=== PATIENT | female | born 1955 | race Caucasian/White ===

== ENCOUNTER 2025-01-21 12:26 | Outpatient (CLI) | payer MEDICARE, SELFPAY ==
--- OUTSIDE RECORDS SUMMARY | 2025-01-21 12:38 | XMS_ITS ---
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 11/01/2023 Intertrigo 06/16/2022 History of right breast cancer 05/23/2022 Malignant neoplasm of upper- outer quadrant of right breast in female, estrogen receptor positive 11/09/2021 Cancer Staging:Pathologic stage from 01/19/2022:Stage IA(pT2, pN0(sn), cM0, G2, ER+, OK+, HER2-) - Signed by Esteban Olivera MD on 03/30/2022 Current Treatment and Therapy Plans denosumab (PROLIA) Injection* Plan Start Date:11/06/2023 Plan Provider:Cortney Godinez MD Linked Problems middle or intermediate school principal (current) use of a romatase inhibitorsOsteopenia of multiple sitesMalignant neoplasm of upper-outer quadrant of right breast in female, estrogen receptor positive (HCC) Treatment Medications No medications scheduled. Past Treatment and Therapy Plans No past plan information found. Radiation Treatments * Course C1_R [id number]_22 04/28/2022 - 05/19/2022 Treatment Period Energy Fraction Dose Fractions Total Dose Plans Planned R BRST PRONE 04/28/2022 - 05/19/2022 266 16 / 4,256 Reference Points Delivered PRNE R [id number] 04/28/2022 - 05/19/2022 4,256
--- OUTSIDE RECORDS SUMMARY | 2025-01-21 12:38 | XMS_ITS | Encounter Summary ---
Author Organization [facility] Address [address] [place] [address] Phone Care Team Providers Care Mixing Tumbler Operator Name Role Phone Clarence Valles MD Primary Care Provider Alexandre, Shaye Abbott MD PhD Unavailable [phone] Esteban Olivera MD Unavailable Cortney Godinez MD Unavailable [phone] Anita Sawyer PhD Unavailable [phone] Encounter Details Date Type Department Care Team (Latest Contact Info) Description 09/18/2023 Orders Only [facility] Scanning, Provider Social History Tobacco Use Types Packs/Day Years Used Date Smoking Tobacco: Former Cigarettes 0.5 1 1 976 - 1976 Passive Smoke Exposure: Past Smokeless Tobacco: Never AUDIT-C Answer Date Recorded Q1: How often do you have a drink containing alc ohol? Never 03/30/2022 Average Number of Drinks Not on file 022 Frequency of Binge Drinking Not on file 03/17 Comments No Sex and Gender Information Value Date Recorded Sex Assigned at Not on file Legal Sex Female 8:23 PM PALEOLOGY PROFESSOR Gender Identity Female 11/09/2021 6:44 PM PALEOLOGY PROFESSOR Sexual Orientation Choose not to disclose 2021 6:44 PM PALEOLOGY PROFESSOR documented as of this encounter Plan of Treatment Not on file documented as of this encounter Procedures Procedure Name Priority Date/Time Associated Diagnosis Comments SCAN - RADIOLOGY/IMAGING 09/18/2023 documented in this encounter Results * SCAN - RADIOLOGY/IMAGING (09/18/2023) Anatomical Region Laterality Modality Other us Provider Scanning Final Result documented in this encounter Visit Diagnoses Not on filedocumented in this encounter Care Teams Mixing Tumbler Operator Relationship Specialty Start Date End Date Clarence Valles MD PCP - General Internal Medicine 10/12/21 AftShaye MD PhD [address] [place] [address] Surgeon Surgical Oncology 01/19/22 Esteban Olivera MD [address] [facility] [address] [place] [address] Radiation Oncologist Radiation Oncology 03/30/22 Cortney Godinez MD [address] [place] [address] Medical Oncologist/Director Of Student Financial Aid Medical Oncology 03/30/22 Anita Sawyer, PhD [address] [facility] [address] [place] [address] Nurse Practitioner Radiation Oncology 05/23/22 documented as of this encounter
--- OUTSIDE RECORDS SUMMARY | 2025-01-21 12:38 | XMS_ITS | Clinical Summary ---
Author Organization [facility] [employer] Address [address] [place] [address] Care Team Providers Care Manager Parking Name Role Phone Clarence Valles MD Primary Care Provider [phone] Source Comments [facility] [employer],non-owned Affiliates and Associated Physician Practices is amultiple site organization consisting of ambulatory clinics and hospital sitesin [place], [place], [place] and [place]. This disclosure is being madepursuant to the Care Everywhere program and may not contain all information available regarding this patient. Last updated 18.[facility] [employer] Allergies Active Allergy Reactions Criticality Noted Date Comments Mellaril Itching 08/25/2020 Fluoxetine Itching 08/25/2020 Stelazine Itching 08/25/2020 Medications * Be aware that medications may not be up to date on this document. Alwaysverify current medications with the patient. tamsulosin (FLOMAX) 0.4 MG capsule Take 1 (one) capsule by mouth once daily At the same time every day after a meal. Active risperiDONE (RISPERDAL) 1 MG tablet Take 1 (one) tablet by mouth 2 times daily 2 times in day and 3 at bedtime Active LORazepam (ATIVAN) 2 MG tablet Take 1 (one) tablet by mouth every 8 hours as needed for Anxiety 3 to 5 mg per day 3 to 4 per day Active benztropine (COGENTIN) 0.5 MG tablet Take 1 (one) tablet by mouth once daily 1 to 2 pills per day. 1 in morning, 1/2 afternoon then 1/2 as needed Active lamoTRIgine (LAMICTAL) 200 MG tablet Take 1 (one) tablet by mouth once daily Active PARoxetine (PAXIL) 30 MG tablet Take by mouth once daily 2 per day Active traZODone (DESYREL) 100 MG tablet Take 1 (one) tablet by mouth at bedtime 1/2 at bedtime. 1/2 more if needed Active docusate sodium (Colace) 100 MG capsuleIndication s:Drug-induced constipation TAKE 1 CAPSULE BY MOUTH EVERY DAY 90 capsule 3 Active Active Problems Problem Noted Date Diagnosed Date Stage 3a chronic kidney disease 01/30/2024 Drug-induced constipation 01/30/2024 Vitamin D deficiency 11/24/2020 Encounters Date Type Department Care Team Description 01/20/2025 Telephone [facility] [address] [place] [address] [phone] Rafael Fry RN Follow-up 01/15/2025 Orders Only [facility] [address] [place] [phone] John Mcgill MD Stage 3a chronic kidney disease (HCC) 12/10/2024 Refill [facility] - Nephrology [address] [place] [address] [phone] John Mcgill MD Refill Request from Last 3 Months Social History Tobacco Use Types Packs/Day Years Used Date Smoking Tobacco: Never Smokeless Tobacco: Never Alcohol Use Standard Drinks/Week Comments Never 0 (1 standard drink = 0.6 oz pur e alcohol) AUDIT-C Answer Date Recorded Q1: How often do you have a drink containing alc ohol? Never 08/25/2020 Average Number of Drinks Not on file 020 Frequency of Binge Drinking Not on file 05/2020 Comments Unknown Sex and Gender Information Value Date Recorded Sex Assigned at Female 11/22/2021 10:36 PM TARIFF CLERK Legal Sex Female 10:33 AM CDT Gender Identity Choose not to disclose 10:36 PM TARIFF CLERK Sexual Orientation Choose not to disclose 2021 10:36 PM TARIFF CLERK Last Filed Vital Signs Vital Sign Reading Time Taken Comments Blood Pressure 130/65 01/30/2024 1:06 PM CDT Pulse 69 01/30/2024 1:06 PM CDT Temperature 36.7 C (98 F) 01/30/2024 1:06 PM CDT Respiratory Rate 20 01/31/2023 12:44 PM CDT Oxygen Saturation 100% 01/30/2024 1:06 PM CDT Inhaled Oxygen Concentration - - Weight 80.3 kg (177 lb) 01/30/2024 1:06 PM CDT Height 167.6 cm (5' 6 ) 11/24/2020 1:58 PM TARIFF CLERK Body Mass Index 28.57 11/24/2020 1:58 PM TARIFF CLERK Plan of Treatment Upcoming Encounters Date Type Department Care Team (Late st Contact Info) Description 01/28/2025 1:00 PM CDT Office Visit [facility] - Nephrology [address] [place] [address], [place] [phone] John Mcgill MD [address] [place] [address] [address] [place] [address] Health Maintenance Due Date Last Done Comments BONE DENSITY TESTING 1955 COLOGUARD (AGES 45-75) - COLON CA SCREENING 1957 COLON MONITORING 1957 COLONOSCOPY - COLON CA SCREENING 1957 CT COLONOGRAPHY - COLON CA SCREENING 1957 Colorectal Cancer Screening 1957 FIT - COLON CA SCREENING 1957 FLEX SIG - COLON CA SCREENING 1957 LIPID TESTING 1957 HEPATITIS C SCREENING 01/19/1975 DTAP/TDAP/TD VACCINES (1 - Tdap) 01/24/1976 PNEUMOCOCCAL VACCINE 50+ (1 of 1 - PCV) 2007 ZOSTER VACCINE (1 of 2) 2007 COVID-19 VACCINE (5 - season) 2024 10/02/2022, 11/16/2021, 03/14/2021, Additional history exists DEPRESSION SCREENING 09/17/2024 MEDICARE AWV CALENDAR YEAR 2024 MAMMOGRAM 02/05/2025 02/05/2023 INFLUENZA VACCINE (Season Ended) 2025 08/02/2023, 08/02/2022, 08/02/2021, Additional history exists Respiratory Syncytial Virus (RSV) Vaccine Pt: or over 60 yrs (1 - 1-dose 75+ series) 01/24/2032 HEPATITIS B VACCINE Aged Out No longe r eligible based on patient's age to complete this topic HIB VACCINE Aged Out No longer eligi ble based on patient's age to complete this topic HPV VACCINE Aged Out No longer eligi ble based on patient's age to complete this topic MENINGOCOCCAL (Group B) VACCINE SHARED DECISION-MAKING Aged Out No longer eligible based on patient's age to complete this topic MENINGOCOCCAL GROUPS A/C/Y/W VACCINE Aged Out No longer eligible based on patient's age to complete this topic Goals Goal Patient Goal Type Associated Problems Recent Progress Patient-Stated? Author Medication Management General Mildred Cowart RN Note: Expected end date: ongoing Interventions: Take medications as prescribed by physician. GC/patient contact physician/nurse with any changes in medications. GC/patient contact physician/nurse at least one week before taking last dose of medication when requesting refills. 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
--- OUTSIDE RECORDS SUMMARY | 2025-01-21 12:38 | XMS_ITS | Clinical Summary ---
Author Organization [address] Address [facility] [place] [address] Care Team Providers Care Shag Truck Driver Name Role Phone Clarence Valles MD Primary Care Provider Aft, Shaye Abbott MD PhD Unavailable [phone] Esteban Olivera MD Unavailable Cortney Godinez MD Unavailable [phone] Anita Sawyer PhD Unavailable Allergies Active Allergy Reactions Criticality Noted Date Comments Fluoxetine Itching High 09/27/2015 Other Hives Medium 08/03/2022 Skin allergy to metal Thioridazine Itching,Rash Medium 08/25/2020 Trifluoperazine Itching,Rash High 09/27/2015 Medications benztropine (COGENTIN) 0.5 mg tabletIndicatio ns:duskinesia Take 1 tablet (0.5 mg total) by mouth 2 (two) times a day 2 Active lamoTRIgine (LaMICtal) 200 mg tabletIndicatio ns:Bipolar Take 1 tablet (200 mg total) by mouth every morning 1 Active LORazepam (ATIVAN) 2 mg tabletIndicatio ns:anxiety Take 2 mg by mouth 2 (two) times a day as needed for anxiety 0 Active risperiDONE (RisperDAL) 1 mg tabletIndicatio ns:bipolar Take 1 tablet (1 mg total) by mouth 4 (four) times a day 2 tabs in AM 1 tab with lunch 1 with dinner 3 tabs at night Active PARoxetine (PAXIL) 30 mg tabletIndicatio ns:Anxiety with Depression Take 2 tablets by mouth every morning Active tamsulosin (FLOMAX) 0.4 mg extended release capsule 1 capsule (0.4 mg total) every evening Active traZODone (DESYREL) 100 mg tablet Take 1 tablet (100 mg total) by mouth nightly as needed for sleep Active vitamin B complex capsule Take 1 capsule by mouth every morning Active multivitamin capsule Take 1 capsule by mouth every morning Active vitamin E (AQUASOL E) 400 unit capsule Take 4 capsules (1,600 Units total) by mouth every morning Active calcium carbonate (CALCIUM 500 ORAL) Take by mouth every morning Active LORazepam (ATIVAN) 1 mg tablet Take 1 tablet (1 mg total) by mouth 3 (three) times a day 2 Active PARoxetine (PAXIL) 20 mg tablet Take 1 tablet (20 mg total) by mouth 2 (two) times a week 2 Active omega 8-pgp-lqq-fish oil (Fish OiL) 100-160-1,000 mg capsule Active LORazepam (ATIVAN) 0.5 mg tablet PLEASE SEE ATTACHED FOR DETAILED DIRECTIONS 3 Active traZODone (DESYREL) 50 mg tablet TAKE 1 TABLET BY MOUTH EVERY DAY AT BEDTIME NEEDED FOR 30 DAYS 3 Active PARoxetine (PAXIL) 40 mg tablet TAKE 1 TABLET BY MOUTH EVERY DAY IN THE MORNING FOR 90 DAYS 3 Active anastrozole (ARIMIDEX) 1 mg tablet TAKE 1 TABLET BY MOUTH EVERY DAY 90 tablet 3 4 Active Active Problems Problem Noted Date Diagnosed Date Osteopenia of multiple sites 11/01/2023 longterm (current) use of aromatase inhibitors 11/01/2023 Intertrigo 06/16/2022 History of right breast cancer 05/23/2022 Malignant neoplasm of upper- outer quadrant of right breast in female, estrogen receptor positive 11/09/2021 Cancer Staging:Pathologic stage from 01/19/2022:Stage IA(pT2, pN0(sn), cM0, G2, ER+, AK+, HER2-) - Signed by Esteban Olivera MD on 03/30/2022 Encounters Date Type Department Care Team Description 11/11/2024 12:00 PM FINISHING RANGE OPERATOR Office Visit [facility] Oncology [address] [facility] [place] [address] Cortney Godinez MD Malignant neoplasm of upper-outer quadrant of right breast in female, estrogen receptor positive (HCC) (Primary Dx) 11/11/2024 11:15 AM FINISHING RANGE OPERATOR Lab [facility] - Lab Collection [address] [facility] [address] [place] [address] Malignant neoplasm of upper-outer quadrant of right breast in female, estrogen receptor positive (HCC) from Last 3 Months Immunizations Immunization Administration Dates Next Due Influenza, Quadrivalent, Hig h Dose, Preservative Free, Intrr 08/02/2023,08/02/2022 Influenza, Quadrivalent, Spl it, Intramuscular 07/18/2016 Influenza, Quadrivalent, Spl it, Preservative Free, Intramuscular 08/02/2021,07/05/2020,08/06/2019,07/25,07/10/2017 Influenza, Trivalent, IM (MDV) 06/30/2015 Influenza, Trivalent, Preser vative Free, Intramuscular 07/17/2014 Pneumococcal Conjugate Pcv20 01/03/2022 Surgical History Surgery Date Site/Laterality Comments KNEE ARTHROPLASTY Right KNEE ARTHROPLASTY TUBAL LIGATION 1979? BLADDER SUSPENSION 1984? FOOT SURGERY hardware COLONOSCOPY BREAST BIOPSY Right Medical History Medical History Date Comments Breast cancer (HCC) Kidney failure Schizoaffective disorder (HCC) Panic disorder Post traumatic stress disorder Generalized anxiety disorder Family History Medical History Relation Name Comments Breast cancer Mother Breast cancer Other Prostate cancer Paternal Grandfather Anesthesia problems Neg Hx Relation Name Status Comments Mother Other Paternal Grandfather Paternal Great-Grandfather Alive Social History Tobacco Use Types Packs/Day Years Used Date Smoking Tobacco: Former Cigarettes 0.5 1 1 976 - 1976 Passive Smoke Exposure: Past Smokeless Tobacco: Never Tobacco Cessation:Counseling Given: Not Answered AUDIT-C Answer Date Recorded Q1: How often do you have a drink containing alc ohol? Never 03/30/2022 Average Number of Drinks Not on file 022 Frequency of Binge Drinking Not on file 03/17 Comments No Sex and Gender Information Value Date Recorded Sex Assigned at Not on file Legal Sex Female 8:23 PM FINISHING RANGE OPERATOR Gender Identity Female 11/09/2021 6:44 PM FINISHING RANGE OPERATOR Sexual Orientation Choose not to disclose 2021 6:44 PM FINISHING RANGE OPERATOR Obstetrics History Para Term AB IAB SAB Ectopic Multiple Livin g Live Births 0 0 0 0 0 0 0 0 0 0 0 Last Filed Vital Signs Vital Sign Reading Time Taken Comments Blood Pressure 111/76 11/11/2024 11:30 AM FINISHING RANGE OPERATOR Pulse 80 11/11/2024 11:30 AM FINISHING RANGE OPERATOR Temperature 36.7 C (98.1 F) 11/11/2024 11:30 AM FINISHING RANGE OPERATOR Respiratory Rate 18 11/11/2024 11:30 AM FINISHING RANGE OPERATOR Oxygen Saturation 99% 11/11/2024 11:30 AM FINISHING RANGE OPERATOR Inhaled Oxygen Concentration - - Weight 77.1 kg (170 lb) 11/11/2024 11:30 AM FINISHING RANGE OPERATOR Height 162.5 cm (5' 3.98 ) 11/11/2024 11:30 AM C Body Mass Index 29.2 11/11/2024 11:30 AM FINISHING RANGE OPERATOR Plan of Treatment Health Maintenance Due Date Last Done Comments Colon Cancer Screening-Colonoscopy 1957 Depression Screening 1957 Hepatitis C Screening 1955 Osteoporosis Screening-Bone Density Scan 1957 DTaP/Tdap/Td Vaccine (1 - Tdap) 01/24/1968 Hepatitis B Screening 1975 Zoster Vaccine (1 of 2) 01/24/1976 Well Visit 65+ 2022 Fall Risk Assessment 03/30/2023 03/30/2022, 01/20/20 22 Covid-19 Vaccine (2023-2 5 season) 2024 11/16/2021, 03/14/2021, 02/22/2021 Breast Cancer Screening-Mammogram 02/11/2025 024, 02/05/2023 Influenza Vaccine (Season Ended) 2025 08/02/2023, 08/02/2022, 08/02/2021, Additional history exists Pneumococcal vaccine 65+ Completed 01/03/2022 Medical Devices Implanted Type Area Sfdc Technical Architect Device Identifier Shelf Expiration Date Model / Serial / Lot Rt Total Knee Arthroplasty Right: Knee Bard Peripheral Vascular Ghiatas 20ga 20cm 7cm Beaded Needle Breast Wire Localization [id number] - [id number] Implanted:Qty: 1 on 01/19/2022 at [facility] Peripheral Vascular [id number] / / Procedures Procedure Name Priority Date/Time Associated Diagnosis Comments EGFR Routine 11/11/2024 11:24 AM FINISHING RANGE OPERATOR Malignant neoplasm of upper-outer quadrant of right breast in female, estrogen receptor positive (HCC) COMPREHENSIVE METABOLIC PANEL Routine 11/11/2024 11:24 AM FINISHING RANGE OPERATOR Malignant neoplasm of upper-outer quadrant of right breast in female, estrogen receptor positive (HCC) PHOSPHORUS Routine 11/11/2024 11:24 AM FINISHING RANGE OPERATOR Malignant neoplasm of upper-outer quadrant of right breast in female, estrogen receptor positive (HCC) DIAGNOSTIC MAMMOGRAM BILATERAL W SAMUEL Schedule Routine, Read Routine (OP Routine) 02/12/2024 12:32 PM CDT Invasive ductal carcinoma of breast, female, unspecified laterality (HCC) Encounter for follow-up examination after completed treatment for malignant neoplasm from Last 3 Months or Most Recently Relevant to Health Maintenance Results * (ABNORMAL) eGFR (11/11/2024 11:24 AM FINISHING RANGE OPERATOR) eGFR 40(L) >=60 mL/min/1. 73 m2 Comment: Interpretive Data Reference Interval Normal >/= 90 mL/min/1.73m2 Mildly decreased* 60 - 89 mL/min/1.73m2 Mildly to moderately decreased 45 - 59 mL/min/1.73m2 Moderately to severely decreased 30 - 44 mL/min/1.73m2 Severely decreased 15 - 29 mL/min/1.73m2 Kidney Failure < 15 mL/min/1.73m2 *Relative to young adult level Estimated glomerular filtration rate is determined by the 2020 CKD-EPI equation recommended by the National Kidney Foundation (A Unifying Approach to GFR Estimation: Recommendations of the NKF-ASK Task Force on Reassessing the Inclusion of Race in Diagnosing Kidney Disease, JASN 2020). The CKD-EPI equation should not be used for patients with unstable renal function and has not been validated in children and those over 70. Current interpretive data was last reviewed 2021. Blood 11/11/2024 11:2 4 AM FINISHING RANGE OPERATOR 11/11/2024 11:28 AM FINISHING RANGE OPERATOR Cortney Godinez MD LAB BLOOD ORDERABLES Final Result Performing Organization Address City/[facility]/ZIP Co de Phone Number [facility] [place] [address] * Phosphorus (11/11/2024 11:24 AM FINISHING RANGE OPERATOR) Pathologist [facility] Phosphorus, pl 3.6 2.3 - 4.5 mg/dL Blood 11/11/2024 11:2 4 AM FINISHING RANGE OPERATOR 11/11/2024 11:28 AM FINISHING RANGE OPERATOR Cortney Godinez MD LAB BLOOD ORDERABLES Final Result Performing Organization Address City/[facility] de Phone Number [facility] [place] [address] * (ABNORMAL) Comprehensive metabolic panel (11/11/2024 11:24 AM FINISHING RANGE OPERATOR) Pathologist [facility] Sodium 144 135 - 145 mmol/L Potassium, pl 4.6 3.3 - 4.9 mmol/L [facility] Chloride 107 97 - 110 mmol/L [facility] CO2 30 22 - 32 mmol/L [facility] Anion gap 7 2 - 15 mmol/L [facility] BUN 17 6 - 25 mg/dL [facility] Creatinine 1.43(H) 0.60 - 1.10 mg/dL [facility] Glucose 104 70 - 199 mg/dL [facility] Comment: Interpretive Data Fasting glucose >/= 126 mg/dl is diagnostic for diabetes. Fasting is defined as no caloric intake for at least 8 hours. Fasting glucose between 100 mg/dl to 125 mg/dl is diagnostic of prediabetes. In a patient with classic symptoms of hyperglycemia or hyperglycemic crisis, a random glucose >/= 200 mg/dl is diagnostic for diabetes. In the absence of unequivocal hyperglycemia, results should be confirmed by repeat testing. The classification and Diagnosis of Diabetes Diabetes Care 2021; 46: S19-S40. Current interpretive data was last revised 2022. Calcium 10.1 8.5 - 10.3 mg/dL [facility] Bilirubin, total 0.4 0.1 - 1.2 mg/dL [facility] Protein, pl 7.3 6.5 - 8.5 g/dL [facility] Albumin 4.3 3.5 - 5.0 g/dL [facility] Alk phos 97 40 - 130 Units/L [facility] ALT 12 7 - 45 Units/L [facility] AST 25 10 - 45 Units/L [facility] Blood 11/11/2024 11:2 4 AM FINISHING RANGE OPERATOR 11/11/2024 11:28 AM FINISHING RANGE OPERATOR us Cortney Godinez MD LAB BLOOD ORDERABLES Final Result Performing Organization Address City/State/[facility] Co de Phone Number [facility] [place] [address] * Diagnostic Mammogram Bilateral W Samuel (02/12/2024 12:32 PM CDT) Anatomical Region Laterality Modality Breast Bilateral Mammography 02/12/2024 4:56 PM CDT Impressions 02/12/2024 4:56 PM CDT Stable changes of RIGHT breast conservation therapy without new suspicious mammographic abnormality in EITHER breast. OVERALL FINAL ASSESSMENT: BI-RADS Category 2: Benign. RECOMMENDATION: Annual diagnostic mammography is recommended. Electronically signed by: Bel Karimi M.D. Narrative 02/12/2024 4:56 PM CDT EXAMINATION: BILATERAL DIGITAL DIAGNOSTIC MAMMOGRAM INCLUDING CAD AND BILATERAL DIGITAL BREAST TOMOSYNTHESIS HISTORY: 69-year-old woman with history of RIGHT breast cancer status post breast conservation therapy in 2021, presenting for routine follow-up. COMPARISON: Prior mammograms dating back to 2017, most recent from 02/05/2023. TECHNIQUE: Full field digital mammographic views of BOTH breasts were performed, including computer aided detection (CAD) and BILATERAL digital breast tomosynthesis (DBT). BREAST PARENCHYMAL COMPOSITION: There are scattered areas of fibroglandular density. MAMMOGRAM FINDINGS: Stable changes of RIGHT breast conservation therapy. No new suspicious grouped calcifications, mass, or architectural distortion suggestive of malignancy is detected in EITHER breast. . Procedure Note Bel Karimi MD - 02/12/2024 EXAMINATION: BILATERAL DIGITAL DIAGNOSTIC MAMMOGRAM INCLUDING CAD AND BILATERAL DIGITAL BREAST TOMOSYNTHESIS HISTORY: 69-year-old woman with history of RIGHT breast cancer status post breast conservation therapy in 2021, presenting for routine follow-up. COMPARISON: Prior mammograms dating back to 2017, most recent from 02/05/2023. TECHNIQUE: Full field digital mammographic views of BOTH breasts were performed, including computer aided detection (CAD) and BILATERAL digital breast tomosynthesis (DBT). BREAST PARENCHYMAL COMPOSITION: There are scattered areas of fibroglandular density. MAMMOGRAM FINDINGS: Stable changes of RIGHT breast conservation therapy. No new suspicious grouped calcifications, mass, or architectural distortion suggestive of malignancy is detected in EITHER breast. . IMPRESSION: Stable changes of RIGHT breast conservation therapy without new suspicious mammographic abnormality in EITHER breast. OVERALL FINAL ASSESSMENT: BI-RADS Category 2: Benign. RECOMMENDATION: Annual diagnostic mammography is recommended. Electronically signed by: Bel Karimi M.D. Connie Camacho NP IMG MAMMO PROCEDURES Fin al Result from Last 3 Months or Most Recently Relevant to Health Maintenance Insurance [facility] MEDICARE ADVANTAGE [facility] MEDICARE ADVANTAGE Advance Directives For more information, please contact: [phone] Documents on File Type Date Recorded Patient Brewery Pumper Expl anation Power of Manager Msw 01/19/2022 5:15 AM Care Teams Shag Truck Driver Relationship Specialty Start Date End Date Clarence Valles MD PCP - General Internal Medicine 10/12/21 Aft, Shaye Abbott MD PhD [address] [place] [address] Surgeon Surgical Oncology 01/19/22 Esteban Olivera MD [address] [facility] [address] [place] [address] Radiation Oncologist Radiation Oncology 03/30/22 Cortney Godinez MD [address] [place] [address] Medical Oncologist/Customs Brokerage Manager Medical Oncology 03/30/22 Anita Sawyer, PhD [address] [facility] [address] [place] [address] Nurse Practitioner Radiation Oncology 05/23/22
--- OUTSIDE RECORDS SUMMARY | 2025-01-21 12:38 | XMS_ITS | Referral Summary ---
Author Organization [address] Address [facility] [place] [address] Care Team Providers Care Four Horse Hitch Driver Name Role Phone Clarence Valles MD Primary Care Provider Aft, Shaye Abbott MD PhD Unavailable [phone] Esteban Olviera MD Unavailable Cortney Godinez MD Unavailable [phone] Anita Sawyer PhD Unavailable [phone] Encounters Date Type Department Care Team Description 11/11/2024 11:15 AM SENIOR CREDIT OFFICER Lab [facility] - Lab Collection [facility] [facility] Floor [address] [place] [address] Malignant neoplasm of upper-outer quadrant of right breast in female, estrogen receptor positive (HCC) 11/11/2024 12:00 PM SENIOR CREDIT OFFICER Office Visit [facility] Oncology [address] [facility] [address] [place] [address] Cortney Godinez MD Malignant neoplasm of upper-outer quadrant of right breast in female, estrogen receptor positive (HCC) (Primary Dx) from Last 3 Months Allergies Active Allergy Reactions Criticality Noted Date [...] (two) times a week 2 Active omega 4-czz-ehd-fish oil (Fish OiL) 100-160-1,000 mg capsule Active [...] Diagnosed Date Osteopenia of multiple sites 11/01/2023 prison (current) use of aromatase inhibitors 11/01/2023 Intertrigo 06/16/2022 History of right breast cancer 05/23/2022 Malignant neoplasm of upper- outer quadrant of right breast in female, estrogen receptor positive 11/09/2021 Cancer Staging:Pathologic stage from 01/19/2022:Stage IA(pT2, pN0(sn), cM0, G2, ER+, OH+, HER2-) - Signed by Esteban Olivera MD on 03/30/2022 Immunizations Immunization Administration Dates Next Due Influenza, Quadrivalent, Hig h Dose, Preservative Free, Intrr 08/02/2023,08/02/2022 Influenza, Quadrivalent, Spl it, Intramuscular 07/18/2016 Influenza, Quadrivalent, Spl it, Preservative Free, Intramuscular 08/02/2021,07/05/2020,08/06/2019,07/25,07/10/2017 Influenza, Trivalent, IM (MDV) 06/30/2015 Influenza, Trivalent, Preser vative Free, Intramuscular 07/17/2014 Pneumococcal Conjugate Pcv20 01/03/2022 Social History Tobacco Use Types Packs/Day Years Used Date Smoking Tobacco: Former Cigarettes 0.5 1 1 711 - 5102 Passive Smoke Exposure: Past Smokeless Tobacco: Never [...] on file Legal Sex Female 8:23 PM SENIOR CREDIT OFFICER Gender Identity Female 11/09/2021 6:44 PM SENIOR CREDIT OFFICER Sexual Orientation Choose not to disclose 2021 6:44 PM SENIOR CREDIT OFFICER Last Filed Vital Signs Vital Sign Reading Time Taken Comments Blood Pressure 111/76 11/11/2024 11:30 AM SENIOR CREDIT OFFICER Pulse 80 11/11/2024 11:30 AM SENIOR CREDIT OFFICER Temperature 36.7 C (98.1 F) 11/11/2024 11:30 AM SENIOR CREDIT OFFICER Respiratory Rate 18 11/11/2024 11:30 AM SENIOR CREDIT OFFICER Oxygen Saturation 99% 11/11/2024 11:30 AM SENIOR CREDIT OFFICER Inhaled Oxygen Concentration - - Weight 77.1 kg (170 lb) 11/11/2024 11:30 AM SENIOR CREDIT OFFICER Height 162.5 cm (5' 3.98 ) 11/11/2024 11:[address] Body Mass Index 29.2 11/11/2024 11:30 AM SENIOR CREDIT OFFICER Plan of Treatment Not on file Medical Devices Implanted Type Area Traffic Rate Analyst Device Identifier Shelf Expiration Date Model / Serial / Lot Rt Total Knee Arthroplasty Right: Knee Bard Peripheral Vascular Ghiatas 20ga 20cm 7cm Beaded Needle Breast Wire Localization [id number] - [id number] Implanted:Qty: 1 on 01/19/2022 at [facility] V[facility] [id number] / / Procedures Procedure Name Priority Date/Time Associated Diagnosis Comments EGFR Routine 11/11/2024 11:24 AM SENIOR CREDIT OFFICER Malignant neoplasm of upper-outer quadrant of right breast in female, estrogen receptor positive (HCC) COMPREHENSIVE METABOLIC PANEL Routine 11/11/2024 11:24 AM SENIOR CREDIT OFFICER Malignant neoplasm of upper-outer quadrant of right breast in female, estrogen receptor positive (HCC) PHOSPHORUS Routine 11/11/2024 11:24 AM SENIOR CREDIT OFFICER Malignant neoplasm of upper-outer quadrant of right [...] Results * (ABNORMAL) eGFR (11/11/2024 11:24 AM SENIOR CREDIT OFFICER) eGFR 40(L) >=60 mL/min/1. 73 m2 Comment: [...] reviewed 2021. Blood 11/11/2024 11:2 4 AM SENIOR CREDIT OFFICER 11/11/2024 11:28 AM SENIOR CREDIT OFFICER Cortney Godinez MD LAB BLOOD ORDERABLES Final Result Performing Organization Address City/[facility]/ZIP Co de Phone Number [facility] Department [place] [address] * Phosphorus (11/11/2024 11:24 AM SENIOR CREDIT OFFICER) Pathologist [facility] Phosphorus, pl 3.6 2.3 - 4.5 mg/dL Blood 11/11/2024 11:2 4 AM SENIOR CREDIT OFFICER 11/11/2024 11:28 AM SENIOR CREDIT OFFICER Cortney Godinez MD LAB BLOOD ORDERABLES Final Result [facility] Department [place] [address] * (ABNORMAL) Comprehensive metabolic panel (11/11/2024 11:24 AM SENIOR CREDIT OFFICER) Pathologist [facility] Sodium 144 135 - 145 mmol/L Potassium, pl 4.6 3.3 - 4.9 mmol/L [facility] Chloride 107 97 - 110 mmol/L [facility] CO2 30 22 - 32 mmol/L [facility] Anion gap 7 2 - 15 mmol/L [facility] BUN 17 6 - 25 mg/dL [facility] Creatinine 1.43(H) 0.60 - 1.10 mg/dL [facility] Glucose 104 70 - 199 mg/dL [facility] Comment: Interpretive Data Fasting glucose >/= 126 [...] 2022. Calcium 10.1 8.5 - 10.3 mg/dL [facility] Bilirubin, total 0.4 0.1 - 1.2 mg/dL [facility] Protein, pl 7.3 6.5 - 8.5 g/dL [facility] Albumin 4.3 3.5 - 5.0 g/dL [facility] Alk phos 97 40 - 130 Units/L [facility] ALT 12 7 - 45 Units/L [facility] AST 25 10 - 45 Units/L [facility] Blood 11/11/2024 11:2 4 AM SENIOR CREDIT OFFICER 11/11/2024 11:28 AM SENIOR CREDIT OFFICER Cortney Godinez MD LAB BLOOD ORDERABLES Final Result [facility] Department [place] [address] * Diagnostic Mammogram Bilateral W Samuel (02/12/2024 [...] follow-up. COMPARISON: Prior mammograms dating back to 2016, most recent from 02/05/2023. TECHNIQUE: Full field [...] Most Recently Relevant to Health Maintenance Insurance MEDICARE ADVANTAGE [facility] MEDICARE Address: [address] [place] [id number] MEDICARE ADVANTAGE [facility] MEDIC[facility] Address: [address] [place] [phone] Advance Directives For more information, please contact: [phone] Documents on File Type Date Recorded Patient Special Services Coordinator Expl anation Power of Dot Etcher 01/19/2022 5:15 AM Care Teams Four Horse Hitch Driver Relationship Specialty Start Date End Date Clarence Valles MD PCP - General Internal Medicine 10/12/21 Aft, Shaye Abbott MD PhD [address] [place] [address] Surgeon Surgical Oncology 01/19/22 Esteban Olivera MD [address] [place] [address] Radiation Oncologist Radiation Oncology 03/30/22 Cortney Godinez MD [address] [facility] [address] [place] [address] Medical Oncologist/Rn Recovery Medical Oncology 03/30/22 Anita Sawyer, PhD [address] [facility] [address] [place] [address] Nurse Practitioner Radiation Oncology 05/23/22
--- OUTSIDE RECORDS SUMMARY | 2025-01-21 12:38 | XMS_ITS | Encounter Summary ---
Author Organization [facility] Address [address] [facility] [place] [address] Care Team Providers Care Artillery Specialist Name Role Phone Clarence Valles MD Primary Care Provider + [phone] Reason for Visit * Reason Onset Date Comments Follow-up 01/20/2025 Encounter Details Date Type Department Care Team (Late st Contact Info) Description 01/20/2025 Telephone [facility] - [address] [id number] Rafael Fry, RN Follow-up Social History Tobacco Use Types Packs/Day Years [...] Sex Assigned at Female 11/22/2021 10:36 PM COMPLIANCE REVIEW OFFICER Legal Sex Female 10:33 AM CDT Gender Identity Choose not to disclose 10:36 PM COMPLIANCE REVIEW OFFICER Sexual Orientation Choose not to disclose 2021 10:36 PM COMPLIANCE REVIEW OFFICER documented as of this encounter Miscellaneous Notes * Telephone Encounter - Rafael Fry, ABBE - 01/20/2025 9:29 AM CDT Patient's is calling today, states that he called last week and asked for patient's labs leslie faxed to [facility] in [facility]. He states that the lab contacted him and they did not receive lab orders. This RN printed lab orders and faxed to [facility] at [phone] with confirmation receipt. documented in this encounter Plan of Treatment Upcoming Encounters Date Type Department Care Team (Late st Contact Info) Description 01/28/2025 1:00 PM CDT Office Visit [facility] - Nephrology [address] [place] [address], [place] [id number] John Mcgill MD [address] [place] [address] [facility] [place] [id number] documented as of this encounter Goals Goal Patient Goal Type Associated Problems Recent Progress Patient-Stated? Author Medication Management General No Mildred Ghosh, ABBE Note: Expected end date: ongoing Interventions: Take medications as prescribed by physician. GC/patient contact physician/nurse with any changes in medications. GC/patient contact physician/nurse at least one week before taking last dose of medication when requesting refills. documented as of this encounter Visit Diagnoses Not on filedocumented in this encounter Care Teams Artillery Specialist Relationship Specialty Start Date End Date Clarence Valles MD [address] [facility] [address] [place] [address] PCP - General 05/17/20 documented as of this encounter
--- OUTSIDE RECORDS SUMMARY | 2025-01-21 12:38 | XMS_ITS | CONTINUITY OF CARE DOCUMENT ---
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 Role Phone Evelyn RITTER, Willie Unavailable [phone] GEETA RITTER, ANDRÉS Buaman Unavailable Clarence Valles MD Unavailable [phone] PROBLEMS Condition Status Date Provider Notes Palpitations active Humphrey Titus MD Shortness of breath active Humphrey Titus MD Left anterior fascicle block active Humphrey pitt MD [facility] completed - Willie Rivas MD Tobacco use quit active Humphrey Titus MD Preoperative cardiovascular examination active Willie Rivas MD Abnormal EKG active Willie Rivas MD CKD, stage 3 active Willie Rivas MD Syncope active Willie Rivas MD ENCOUNTERS Date Type Provider Location Encounter Diag nosis - In-person encounter Office Visit Willie Rivas MD [facility] LVHSyncopeCKD, stage 3 - In-person encounter Office Visit Willie Rivas MD [facility] Preoperative cardiovascular examinationAbnormal EKG - In-person encounter Office Visit Humphrey Titus MD [facility] - In-person encounter Office Visit Humphrey Titus MD [facility] PalpitationsShortness of breathLeft anterior fascicle blockTobacco use quit VITAL SIGNS Date Observation Value Provider Body Mass Index (Ratio) 27.44 kg/m2 Pily Rivas MD blood pressure, cuff size large Tr franny Artem blood pressure, diastolic 70 mm[Hg] Tr ana luisarobin Mcgill blood pressure, systolic 110 mm[Hg] Try robin Mcgill oxygen saturation, oximetry 98 % Marino Artem respiratory rate E&M 18 /min Marino Artem pulse rate 85 /min Willie Rivas MD weight E&M 170 [lb_av] Marino Artem height E&M 66 [in_i] Marino Artem Body Mass Index (Ratio) 27.60 kg/m2 Pily Rivas MD blood pressure, diastolic 70 mm[Hg] Rh larissa Jay blood pressure, systolic 100 mm[Hg] Rho tremayne Jay oxygen saturation, oximetry 98 % Ansley Jay respiratory rate E&M 18 /min Ansley Jay pulse rate 71 /min Ansley Jay blood pressure, resting No Rhon vj Jay blood pressure, cuff size regular Rh larissa Jay weight E&M 171 [lb_av] Ansley Jay height E&M 66 [in_i] Ansley Jay blood pressure, diastolic 87 mm[Hg] Lola Marion blood pressure, systolic 157 mm[Hg] Anisa Marion pulse rate 72 /min Brandt alvarez oxygen saturation, oximetry 98 % Brandt Marion respiratory rate E&M 16 /min Violetta Marion Body Mass Index (Ratio) 26.73 kg/m2 Raina Marion weight E&M 165.6 [lb_av] Brandt bedoya blood pressure, diastolic 91 mm[Hg] oLla Marion blood pressure, systolic 151 mm[Hg] Anisa Marion pulse rate 78 /min Brandt alvarez oxygen saturation, oximetry 98 % Brandt Marion respiratory rate E&M 16 /min Violetta Marion Body Mass Index (Ratio) 26.18 kg/m2 Raina Marion weight E&M 162.2 [lb_av] Brandt bedoya height E&M 66 [in_i] Brandt alvarez ALLERGIES Allergy Name Onset Date Reaction Criticality Status PROLIXAN High Criticality active STELAZINE High Criticality active MELARIL High Criticality active PROZAC High Criticality active HISTORY OF MEDICATION USE Medication Status Instructions Dates Provider Indications Com ments tamsulosin 0.4 mg capsule active 2 Ansley Jay Lamictal 200 mg tablet active 2 Ansley Jay WEIGHT LOSS VITAMIN active once a day Brandt Marion MULTIVITAMINS ORAL CAPSULE active 1 tablet once a day Brandt Marion VITAMIN B12 TABLET completed once daily - 2 Ansley Jay FISH OIL CONCENTRATE 1000 MG ORAL CAPSULE completed One tab. daily - 2 Ansley Jay ALEVE CAPSULE completed as needed for headaches - 2 Ansley Jay TRAZODONE HCL TABLET active 1 tablet every night as needed Brandt Marion benztropine 1 mg tablet active once a day Brandt Marion paroxetine HCl 20 mg tablet active 3 tablet every morning Brandt Marion LAMICTAL 100 MG ORAL TABLET completed once daily - 2 Ansley Jay lorazepam 2 mg tablet active tablet Brandt Marion Risperdal 2 mg tablet active 1 tab in AM, 1 tab in the afternoon & 3 tabs at bed time Brandt Marion SOCIAL HISTORY Date Observation Value Provider social history E&M S moking History: Andra garcia is a former smoker. Willie Rivas MD social history reviewed E&M revi ewed - no changes required Willie Rivas MD cigarette use yes Marino Marroquin s smoking status Former smoker Marino Huerta rds social history E&M S moking History: Andra garcia is a former smoker. Willie Rivas MD number of grandchildren Willie Rivas MD cigarette use yes Willie Rivas MD smoking status Former smoker Willie Fay ra, MD social history reviewed E&M revi ewed - no changes required Willie Rivas MD social history reviewed E&M revi ewed - no changes required Humphrey Titus MD cigarette use yes Brandt bedoya smoking status Former smoker Brandt Antonson social history E&M Smoking Histo ry: Andra garcia is a former smoker. Humphrey Titus MD social history reviewed E&M revi ewed - no changes required Humphrey Titus MD cigarette use yes Brandt Real aureliano smoking status Former smoker Brandt Austin FAMILY HISTORY Family Member Condition Mother Family History of Di abetes: Mother Family History of Co ngestive Heart Failure: Mother Family History of Di abetes: Father Family History of Co ronary Artery Disease: Mother Family History of Di abetes: INSURANCE PROVIDERS Payer name Policy type / Coverage type [place] red republican ID [facility] [id number] TREATMENT PLAN Date Name Performer [id number],SWillie ra, [place] [id number],S, Willie Fay ra, [place] [id number],SWillie ra, [place] [id number],BWillie ra, [place] [id number],S, Willie Fay ra, [place] [id number],W, Willie Fay ra, MD Cardiology [facility] Cardiology: n eeds left knee arthroplasty c heck noninvasive ischemic evaluation with echo and rega stress Willie Rivas MD Cardiology:The pt di d not have the Holter done and denies palpitations Gideon Carbera Cardiology:Echo show ed some segmental wall motion abnormalities. EF was 50%. The pt denies SOB at this time. No further workup is needed at this time. If she develops symptoms, will consider a stress test. Gideon Cabrera Cardiology:She has e pisodes of SOB and heart fluttering. Will obtain an echo and a Holter. Humphrey Titus MD Cardiology:She has e pisodes of SOB and heart fluttering. Will obtain an echo and a Holter. Humphrey Titus MD Cardiology:The pt wa s evaluated by a psychiatrist who performed an EKG. EKG showed left anterior fascicular block Humphrey Titus MD Cardiology:The pt wa s evaluated by a psychiatrist who performed an EKG. EKG showed mild LVH Humphrey Titus MD Date Name Stress Regadenoson Complete Echo Complete Echo Holter Monitor 24 Hr HISTORY OF PROCEDURES Procedure Date Procedure Name Provider Procedure Notes S tatus EKG Willie Rivas MD complet ed SNOMED-CT: 229076414 Smoking Cessation Counseling Humphrey Titus MD completed SNOMED-CT: 499082841 [id number] Current Medications Documented Humphrey Titus MD completed SNOMED-CT: 566012946 Smoking Cessation Counseling Humphrey Titus MD completed SNOMED-CT: 026837207 881702 Current Medications Documented Humphrey Titus MD completed
--- OUTSIDE RECORDS SUMMARY | 2025-01-21 12:38 | XMS_ITS | Data Portability ---
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 Plan of Treatment Reminders Order Date Submit Date Provider Last Modified By Organization Details Last Modified Time Details Appointments Any 15 2024 01:30P M Alondra Valles MD Not available Not available Not available Follow Up 20 2024 01:00P Estefani Mcdonald NP Not available Not available Not available Lab vitamin D, 25-hydr oxy, total, serum 2023 024 [email or web address], [address], [place], [address], 09/11/2024 09:07:42 CBC w/ auto diff 2023 024 [email or web address], [address], [place], [address], 09/11/2024 09:07:41 CMP, serum or plasma 2023 024 [email or web address], [address], [place], [address], 09/04/2024 09:12:59 lipid panel, serum 2023 024 [email or web address] [facility], [address], [place], [address], 09/04/2024 09:12:59 Referral None recorde d. Procedures colonos copy artiei ashish (PROC) - Please call patient to clover duarte 2023 024 [email or web address] Francis lockwood MD, [address], [address], [place], [address], 11/26/2024 08:56:16 Surgeries None recorde d. Imaging None recorde d. Medication Orders Silvade ne 1 % topical cream 2024 025 [email or web address] [id number], [address], 12/22/2024 11:11:27 Silvade ne 1 % topical cream 2023 024 [email or web address] [facility] [id number], [address], 08/27/2024 14:36:53 Patient TargetsNo targets recorded. Patient Instructions Encounter Date Encounter Id Patient Instructions Last Modified By Organization Details Last Modified Time 08/27/2024 [id number] dementia rating scale-2* Not available 08/27/2024 17:31:38 depression screening* Not available 08/27/2024 17:31:38 alcohol misuse* Not available 08/27/2024 17:31:38 Timed Up and Go test (TUG)* Not available 08/27/2024 17:31:39 multi-dimensiona l health assessment questionnaire* Not available 08/27/2024 17:31:38 Patient Instructions Personalized Health Plan and Screening Recommendations Advance Directives - Do you have one? Yes Advance Directives - Do we have your advance directive on file in your health record? no, please bring to next visit Primary Prevention/Interven tion (prevents or decreases the chance of common diseases from occurring) Smoking Risk: Non Smoker _ Alcohol Misuse Screening: Negative ____ Weight: Overweight continue your current weight loss efforts Physical activity: Appropriate physical activity minimum of 10-20 minutes of activity that causes mild breathlessness/day Nutrition: Average ____ Fall Risk (screened today): Low ____ Vaccines Pneumococcal: Next to be done in September 2024 Influenza: Your next one in the fall of 2024 Chronic Disease Risks Stroke: Low Risk Active diagnosis, Continue current treatment plan Heart Attack: Low risk Active diagnosis, Continue current treatment plan Clogging of the Arteries: Intermediate Risk Active diagnosis, Continue current treatment plan Diabetes: Low Risk I have no recommendations Secondary Prevention/Interven tion (detects treatable diseases before they may cause symptoms, disability, or ) Breast Cancer Screening with mammogram: No screening necessary-up to date Cervical/Uterine/Ov tami Cancer Screening: No screening necessary Osteoporosis Screening: Colon Cancer Screening: Colonoscopy - ordered Eye Disease Screening: No Eye exam necessary Dementia Risk: Low I have no recommendations Depression Screening: History of depressive disorder, continue current plan of treatment. [email or web address] Not available 08/27/2024 15:49:13 12/23/2024 [id number] d/c local wound care and soaks [email or web address] Not available 12/24/2024 08:24:49 Reason for Referral None Reported. Results Created Date Observation Date Name Description Value Unit Range Abnormal Flag Note LastModifiedBy Organization Detail LastModifiedTime 02/13/20 24 02/12/2024 MAMMO , scree chey, digit al, bilat eral No observ ation record ed. Not Available 2023 15:54:55 Result Notes None recorded. Problems Name Problem SNOMED Code Status Onset Date Resolution Date Notes Provider Name and Address Organization Details Recorded Time Otalgia 71898569 Completed Not Available [facility] 3 14:15:01 Biopsy result abnormal 784649212 Active 2021 Not Available [facility] 3 14:15:01 Impacted cerumen 11084146 Completed Not Available [facility] 3 14:15:01 Gastroent eritis 04382738 Completed Not Available [facility] 3 14:15:01 Malignant tumor of breast 620995244 Active 2021 Not Available [facility] 3 14:15:01 Inflammat ory disorder of breast 823822293 Completed Not Available [facility] 3 14:15:01 Retention of urine 494694733 Completed Not Available [facility] 3 14:15:02 Osteopeni a 092608442 Active 2018 Not Available [facility] 3 14:15:02 Otitis externa 6418723 Completed Not Available [facility] 3 14:15:02 Depressiv e disorder 77954397 Active Not Available [facility] 3 14:15:02 Osteoarth ritis 476426576 Active 2018 Not Available [facility] 3 14:15:02 Upper respirato ry infection 30110723 Completed Not Available [facility] 3 14:15:02 Hyperlipi demia 39917895 Active 2017 Not Available [facility] 3 14:15:02 Schizophr enia 60245742 Active Not Available [facility] 3 14:15:02 Urinary tract infectiou s disease 08273807 Completed Not Available [facility] 3 14:15:02 Nocturnal enuresis 9864752 Active Not Available [facility] 3 14:15:02 Epilepsy 67850601 Active Not Available [facility] 3 14:15:02 Kidney disease 84969677 Active 2018 Not Available [facility] 3 14:15:02 Pain of bilateral knee joints 98528660615 4104 Active 2022 CHALO Anders, [place] [employer] [facility] [employer] [facility] 3 09:15:20 Impacted cerumen in right ear 43866017928 82772 Active 2022 Alondra Valles MD [address], [address], [place], [address] , [employer] [facility] [employer] [facility] 3 14:21:02 Onychomyc osis of toenails 366148764 Active 2023 Alondra Valles MD [address], [address], [place], [address] , [employer] [facility] [employer] [facility] 4 14:56:12 Paronychi a of toe of left foot 39824922219 229118 Active 2023 Elder Perez SARATiffany pérez, [facility] 4 15:39:44 Osteoporo sis 75310608 Active 2023 Alondra Valles MD [address], [address], [place], [address] , [facility] 4 15:07:54 Paronychi a of toe 892497839 Active 2024 CHALO Cadet null, [facility] 5 15:39:24 Problem Notes None recorded. Procedures Surgical History Date Name Laterality Status Provider Name and Address Organization Details Recorded Time 12/11/19 25 Total Nail Avulsion with Phenol Matrixectomy completed Fidel John DPM [address] [facility] [facility], [address], [place], [address], [facility] 12/11/2024 09:02:05 08/27/20 24 Medicare Wellness CPT Code, subsequent completed Sabi German [facility] 08/27/2024 14:32:57 03/04/20 24 Total Nail Avulsion with Phenol Matrixectomy completed Fidel John DPM [address], [address], [place], [address], [facility] 03/04/2024 19:12:07 Bladder completed Not Available [facility] 09/2022 14:11:49 Tubal Ligation completed Not Available [facility] 11/15/2022 14:11:49 Foot Surgery completed Not Available [facility] 11/15/2022 14:11:49 Cyst Removal completed Not Available [facility] 11/15/2022 14:11:49 arthroplasty of knee completed Not Available [facility] 11/15/2022 14:11:49 arthroplasty of knee completed Not Available [facility] 11/15/2022 14:11:49 Lumpectomy completed Not Available [facility] 11/15/2022 14:11:49 Imaging Results Imaging Date Name Status LastModified by Organiz ation Details LastModified Time 02/12/2024 MAMMO, screening, digital, bilateral completed [email or web address] Information not available 02/18/2024 15:54:55 Procedure Notes None recorded. Medical Equipment None Reported. Allergies Allergen ID Allergen Name Allergen Category Reaction Reaction Severity Criticality Documentation Date Start Date Code Code System Note Provider Name and Address Organization Details Recorded Time 19159 trifluope razine hydrochlo ride medicatio n rash Not available Not available 11/15/2022 66321 RxNorm Not Available [facility] 3 14:19:03 46458 Prozac medicatio n Not available Not available Not available 11/15/2022 23505 RxNorm Not Available [facility] 3 14:19:03 36988 thioridaz ine hydrochlo ride medicatio n rash Not available Not available 11/15/202282702 5 RxNorm Not Available [facility] 3 14:19:03 Medications Name Sig Start Date Stop Date Status Note LastModified by Organization Details LastModified Time amoxicill in 500 mg capsule TAKE 4 CAPSULES BY MOUTH ONE HOUR BEFORE DENTAL APPOINTM ENT 03/29 completed Not Available Not Available Not Available silver sulfadiaz ine 1 % topical cream APPLY A 1/16 INCH (1.5 MM) THICK LAYER TO ENTIRE BURN AREA BY TOPICAL ROUTE 2 TIMES PER DAY active Not Available Not Available No t Available anastrozo le 1 mg tablet TAKE 1 TABLET BY MOUTH EVERY DAY active Not Available Not Available No t Available neomycin- polymyxin -hydrocor t 3.5 mg/mL-10, 000 unit/mL-1 % ear solution INSTILL 4 DROPS INTO AFFECTED EAR(S) BY OTIC ROUTE 3 TIMES PER DAY active Not Available Not Available No t Available oxcarbaze pine 150 mg tablet active Not Available Not Available No t Available prednison e 10 mg tablet take 3 for 3 days, 2 for 3 days and 1 for 3 days active Not Available Not Available No t Available atorvasta tin 20 mg tablet Take 1 tablet every day by oral route. active Not Available Not Available No t Available benztropi ne 0.5 mg tablet TAKE 1 TABLET BY MOUTH EVERY MORNING, 1/2 TABLET EVERY AFTERNOO N, AND 1/2 TAB NEEDED active Not Available Not Available No t Available lamotrigi ne 200 mg tablet TAKE 1 TABLET BY MOUTH EVERY DAY IN THE MORNING AFTER BREAKFAS T active Not Available Not Available No t Available desoximet asone 0.25 % topical cream APPLY TO AFFECTED AREA AT NIGHT 12/28 completed Not Available Not Available Not Available trazodone 50 mg tablet TAKE 1 TABLET BY MOUTH EVERY DAY AT BEDTIME NEEDED active Not Available Not Available No t Available atorvasta tin 10 mg tablet TAKE 1 TABLET BY MOUTH EVERY DAY active Not Available Not Available No t Available ondansetr on HCl 4 mg tablet Take 1 tablet every 6 hours by oral route as needed. 07/25 completed Not Available Not Available Not Available desmopres sin 0.2 mg tablet Take 2 tablets twice a day by oral route for 30 days. 07/25 completed Not Available Not Available Not Available topiramat e 25 mg tablet 07/25 completed Not Available Not Available Not Available acetamino phen 300 mg-codein e 30 mg tablet TAKE 1 TABLET BY MOUTH EVERY 6 HOURS NEEDED active Not Available Not Available No t Available ciproflox acin 250 mg tablet Take 1 tablet every 12 hours by oral route for 3 days. 07/23 completed Not Available Not Available Not Available aspirin 81 mg tablet,de layed release 06/13 completed Not Available Not Available Not Available acetamino phen 500 mg tablet TAKE 2 TABLETS BY MOUTH EVERY 6 HOURS 06/29 completed Not Available Not Available Not Available risperido ne 3 mg tablet TAKE 1 TABLET BY MOUTH EVERYDAY AT BEDTIME active Not Available Not Available No t Available amoxicill in 500 mg tablet take 2gms (4tabs) PO 1 hr prior to dental procedur e active Not Available Not Available No t Available lamotrigi ne 25 mg tablet 07/25 completed Not Available Not Available Not Available risperido ne 2 mg tablet TAKE 1/2 (ONE-SHASHI F) TABLET BY MOUTH IN THE MORNING AND EVENING FOR 90 DAYS active Not Available Not Available No t Available lorazepam 0.5 mg tablet TAKE ONE-HALF (1/2) TABLET BY MOUTH THREE TIMES DAILY NEEDED. active Not Available Not Available No t Available tamsulosi n 0.4 mg capsule TAKE 1 CAPSULE BY MOUTH EVERY DAY active Not Available Not Available No t Available trazodone 100 mg tablet 1 tablet as needed active Dr. Sequeira Not Available Not Available Not Available lorazepam 2 mg tablet TAKE 1 TABLET BY MOUTH IN MORNING, 1/2 TABLET IN AFTERNOO N, AND 1/2 TABLET AT BEDTIME NEEDED 08/27 completed Not Available Not Available Not Available cephalexi n 500 mg capsule TAKE 1 CAPSULE BY MOUTH EVERY 6 HOURS 07/07 completed Not Available Not Available Not Available paroxetin e 30 mg tablet TAKE 2 TABLETS BY MOUTH EVERY DAY 08/02 completed Not Available Not Available Not Available paroxetin e 20 mg tablet TAKE 2 TABLETS BY MOUTH IN THE MORNING 08/02 completed Not Available Not Available Not Available Cipro 500 mg tablet Take 1 tablet every 12 hours by oral route for 10 days. active Not Available Not Available No t Available losartan 25 mg tablet 09/18 completed Not Available Not Available Not Available benztropi ne 1 mg tablet 1 tablet once a day active Not Available Not Available No t Available docusate sodium 100 mg capsule TAKE 1 CAPSULE BY MOUTH EVERY DAY active Not Available Not Available No t Available ergocalci ferol (vitamin D2) 1,250 mcg (50,000 unit) capsule TAKE 1 CAPSULE BY MOUTH ONE TIME PER WEEK 12/23 completed Not Available Not Available Not Available lorazepam 1 mg tablet TAKE 1 TABLET BY MOUTH TWICE A DAY NEEDED 06/29 completed Not Available Not Available Not Available polyethyl ivette glycol 3350 17 gram/dose oral powder 07/28 completed Not Available Not Available Not Available paroxetin e 40 mg tablet TAKE 1 TABLET BY MOUTH EVERY DAY IN THE MORNING FOR 90 DAYS active Not Available Not Available No t Available clotrimaz ole 1 % topical cream APPLY TO AFFECTED AREA TWICE A DAY 12/28 completed Not Available Not Available Not Available risperido ne 1 mg tablet TAKE 1 TABLET BY MOUTH IN THE MORNING AND IN THE EVENING AND THEN 3 TABLETS AT BEDTIME 08/27 completed Not Available Not Available Not Available lamotrigi ne 100 mg tablet Take 1 tablet every day by oral route. 09/18 completed Not Available Not Available Not Available amoxicill in 875 mg-potass ium clavulana te 125 mg tablet Take 1 tablet every 12 hours by oral route for 10 days. active Not Available Not Available No t Available oxycodone 5 mg tablet TAKE ONE TABLET BY MOUTH EVERY 4 HOURS NEEDED FOR PAIN 06/29 completed Not Available Not Available Not Available neomycin- polymyxin -hydrocor t 3.5 mg-10,000 unit/mL-1 % ear drops,jose p active Not Available Not Available Not Available nitrofura ntoin monohydra te/macroc rystals 100 mg capsule Take 1 capsule twice a day by oral route with meals for 10 days. 07/23 completed Not Available Not Available Not Available Toviaz 4 mg tablet,ex tended release Take 1 tablet every day by oral route for 14 days. 02/19 completed Not Available Not Available Not Available Senexon-S 8.6 mg-50 mg tablet 06/29 completed Not Available Not Available Not Available Suprep Bowel Prep Kit 17.5 gram-3.13 gram-1.6 gram oral solution active Not Available Not Available Not Available Latuda 20 mg tablet 07/25 completed Not Available Not Available Not Available Vitamin D2 03/17 completed Not Available Not Available Not Available Eliquis 2.5 mg tablet PLEASE SEE ATTACHED FOR DETAILED DIRECTIO NS 07/07 completed Not Available Not Available Not Available Fish Oil 1,200 mg (144 mg-216 mg) capsule Take 1 capsule every day by oral route as needed for 30 days. 2023 active Not Available Not Available Not Avai lable Vitals Date Recorded Body height Body mass index (BMI) Body weight Oxygen saturation Oxygen saturation in Arterial blood by Pulse oximetry Body temperature Heart rate Systolic blood pressure Diastolic blood pressure Provider Name and Address Organization Details Last Updated DateTime 4 157.48 cm 31.6 kg/m2 73315.4 8 g 97 % 97 % 97.8 [degF] 70 /min 117 mm[Hg] 84 mm[Hg] Elder Perez Tiffany [employer] [facility] [employer] 4 15:35:29 Date Recorded Body height Body mass index (BMI) Body weight Oxygen saturation Oxygen saturation in Arterial blood by Pulse oximetry Body temperature Heart rate Provider Name and Address Organization Details Last Updated DateTime 4 157.48 cm 31.5 kg/m2 74153.8 9 g 97 % 97 % 98.4 [degF] 73 /min Elder Perez Tiffany [employer] [facility] [employer] 4 16:20:21 Date Recorded Body height Body mass index (BMI) Body weight Body temperature Heart rate Oxygen saturation Oxygen saturation in Arterial blood by Pulse oximetry Systolic blood pressure Diastolic blood pressure Provider Name and Address Organization Details Last Updated DateTime 4 157.48 cm 31.1 kg/m2 04029.7 g 97.8 [degF] 75 /min 96 % 96 % 109 mm[Hg] 78 mm[Hg] Sabi Marilyn betancur [facility] [employer] [facility] 4 14:30:37 Date Recorded Pain severity - 0-10 verbal numeric rating [Score] - Reported Provider Name and Address Organization Details Last Updated DateTime 08/27/2024 0 Sarika Tello RN [facility] [employer] [facility] 08/27/2024 15:34:46 Date Recorded Body height Oxygen saturation Oxygen saturation in Arterial blood by Pulse oximetry Body temperature Heart rate Body mass index (BMI) Body weight Provider Name and Address Organization Details Last Updated DateTime 5 157.48 cm 98 % 98 % 98.2 [degF] 82 /min 30.9 kg/m2 49324.1 1 g Elder Perez Tiffany [facility] [employer] [facility] 5 15:17:55 Date Recorded Body height Body mass index (BMI) Body weight Oxygen saturation Oxygen saturation in Arterial blood by Pulse oximetry Body temperature Heart rate Provider Name and Address Organization Details Last Updated DateTime 5 157.48 cm 30.7 kg/m2 64568.5 2 g 98 % 98 % 97.9 [degF] 90 /min Elder Perez [facility] [employer] [facility] 5 15:15:18 Social History Question Answer Notes LastModified by Organizat ion Details LastModified Time Tobacco Smoking Status Former Smoker Quit in 1983 Not Available [facility] 11/15/2022 14:11:29 Do You Have An Advance Directive? No [email or web address] Information not available 08/27/2024 What Is Your Level Of Alcohol Consumption? None [id number] Information not available 11/15/2022 Are You Blind Or Do You Have Difficulty Seeing? No [email or web address] Information not available 08/27/2024 What Is Your Level Of Caffeine Consumption? Moderate [id number] Information not available 11/15/2022 How Much Tobacco Do You Chew? None [id number] Information not available 11/15/2022 Are You Currently Employed? No [email or web address] Information not available 08/27/2024 Are You Deaf Or Do You Have Serious Difficulty Hearing? No [email or web address] Information not available 08/27/2024 What Type Of Diet Are You Following? REGULAR [id number] Information not available 11/15/2022 Which Illicit Or Recreational Drugs Have You Used? None [id number] Information not available 11/15/2022 What Is The Highest Grade Or Level Of School You Have Completed Or The Highest Degree You Have Received? 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 30 [email or web address] Information not available 08/27/2024 Have There Been Any Changes To Your Family Or Social Situation? Yes In Law Moved In Next Door [email or web address] Information not available 08/27/2024 What Is The Fluoride Status Of Your Home? Fluoridated [email or web address] Information not available 08/27/2024 Do You Use Insect Repellent Routinely? No [email or web address] Information not available 08/27/2024 Where Do You Live? SingleLevelHouse [email or web address] Information not available 08/27/2024 Do You Have A Medical Power Of Tree Farmer? Yes [email or web address] Information not available 08/27/2024 What Was The Date Of Your Most Recent Tobacco Screening? 12/23/2024 [email or web address] Information not available 12/23/2024 How Many Children Do You Have? 0 [email or web address] Information not available 08/27/2024 Do You Have Any Pets? Yes [email or web address] Information not available 08/27/2024 What Is Your Relationship Status? [email or web address] Information not available 08/27/2024 Do You Use Your Seat Belt Or Car Seat Routinely? Yes [email or web address] Information not available 08/27/2024 Do You Have Smoke And Carbon Monoxide Detectors In Your Home? Yes [email or web address] Information not available 08/27/2024 At What Age Did You Start Smoking Tobacco? 22 [id number] Information not available 11/15/2022 Are You Passively Exposed To Smoke? No [email or web address] Information not available 08/27/2024 Are There Any Smokers In Your House? No [email or web address] Information not available 08/27/2024 How Much Tobacco Do You Smoke? 2 PPD MIGRATION.[id number] Information not available 11/15/2022 What Types Of Sporting Activities Do You Participate In? None [email or web address] Information not available 08/27/2024 Do You Feel Stressed (tense, Restless, Nervous, Or Anxious, Or Unable To Sleep At Night)? [id number] [email or web address] Information not available 08/27/2024 Do You Use Any Illicit Or Recreational Drugs? No [email or web address] Information not available 08/27/2024 Do You Use Sunscreen Routinely? No MIGRATION.79462 [id number] Information not available 11/15/2022 Have You Recently Traveled Abroad? No [email or web address] Information not available 08/27/2024 Do You Have Any Dietary Restrictions? No [email or web address] Information not available 08/27/2024 Sex: Female Functional Status Question Answer Note LastModified by Organizat ion Details LastModified Time Do you have difficulty walking or climbing stairs? Yes [email or web address] Information not available 08/27/2024 Do you have transportation difficulties? Yes [email or web address] Information not available 08/27/2024 Are you able to walk? YESWOREST [email or web address] Information not available 08/27/2024 Do you have difficulty doing errands alone? No [email or web address] Information not available 08/27/2024 Are you able to care for yourself? Yes [email or web address] Information not available 08/27/2024 Do you have difficulty dressing or bathing? No [email or web address] Information not available 08/27/2024 What is your exercise level? Moderate [email or web address] Information not available 08/27/2024 Mental Status Question Answer Note LastModified by Organization D etails LastModified Time Do you have difficulty concentrating, remembering or making decisions? Yes [email or web address] Information no t available 08/27/2024 Family History Relationship Description Onset Age of this Age Resolved Age Notes LastModified by Organization Details LastModified Time Father Heart disease [id number] Not available 11/15/2022 14:11:49 Mother Family history of malignant neoplasm breast cancer [email or web address] Not available 02/26/2024 14:34:59 Mother Diabetes mellitus [id number] [id number] Not available 11/15/2022 14:11:49 Unspecified Relation Kidney disease [id number] Not available 11/15/2022 14:11:50 Medical History Condition Response SKIN PROBLEMS Y CANCER: SPECIFY Y ARTHRITIS Y SEIZURES/EPILEPSY Y URINARY/BLADDER/KIDNEY PROBLEMS Y DEPRESSION (INCLUDING POST ) Y Gynecological HistoryNo gynecological history recorded. Obstetrics History GPAL:G 0 P 0 0 0 0 Immunizations Vaccine Type Date Status Note Provider Nam e and Address Organization Details Recorded Time Influenza, high-dose, quadrivalent, PF 3 completed Alondra Valles MD [address] [facility], [facility] [address], [place], [address], [facility] [employer] 08/02/2023 15:31:28 SARS-COV-2 (COVID-19) vaccine, UNSPECIFIED 1 completed Not Available [facility] 11/15/2022 14:18:50 SARS-COV-2 (COVID-19) vaccine, UNSPECIFIED 1 completed Not Available [facility] 11/15/2022 14:18:50 Influenza, high-dose, quadrivalent, PF 2 completed Not Available [facility] 11/15/2022 14:18:50 Influenza, split virus, quadrivalent, PF 1 completed Not Available [facility] 11/15/2022 14:18:50 Influenza, split virus, quadrivalent, PF 9 completed Not Available [facility] 11/15/2022 14:18:50 Influenza, split virus, quadrivalent, PF 8 completed Not Available [facility] 11/15/2022 14:18:50 Influenza, split virus, quadrivalent, PF 7 completed Not Available [facility] 11/15/2022 14:18:50 Influenza, split virus, quadrivalent, preservative 6 completed Not Available [facility] 11/15/2022 14:18:50 Influenza, split virus, quadrivalent, PF 0 completed Not Available [facility] 11/15/2022 14:18:50 Influenza, split virus, trivalent, preservative 5 completed Not Available [facility] 11/15/2022 14:18:51 Influenza, split virus, trivalent, PF 4 completed Not Available [facility] 11/15/2022 14:18:51 Past Encounters Encounter ID Performer Location Encounter Start Date Encounter Closed Date Diagnosis/Indication Diagnosis SNOMED-CT Code Diagnosis ICD10 Code Diagnosis Note [id number] Kailash Lara MD [facility] [address] [address] 12/23/2020 00:00:00 12/23/2020 14:06:46 [id number] Alondra Valles MD [facility] [address] [address] 01/26/2021 00:00:00 01/26/2021 17:33:44 [id number] Kailash Lara MD [facility] [address] [address] 02/10/2021 00:00:00 02/10/2021 15:44:55 [id number] Kailash Lara MD S_GM[address] [address] 03/03/2021 00:00:00 03/03/2021 12:42:44 [id number] Kailash Lara MD Vonnie_[facility] [address] 03/17/2021 00:00:00 03/27/2021 10:31:04 [id number] Alondra Valles MD [facility] [address] [address] 7 03/25/2021 00:00:00 03/25/2021 15:07:24 [id number] Kail[facility] [address] [facility] [address] [place] [address] 06/13/2021 00:00:00 06/13/2021 13:39:52 [id number] Kailash Lara MD [facility] [address] [address] 06/23/2021 00:00:00 06/23/2021 15:02:13 [id number] Kailash Lara MD S_[facility] [place] [place] [address] 07/07/2021 00:00:00 07/07/2021 14:39:02 [id number] Kailash Lara MD [facility] [address] [address] 07/28/2021 00:00:00 07/28/2021 15:02:38 [id number] Alondra Valles MD [facility] Internal Med [address] [place] [address] 08/01/2021 00:00:00 08/01/2021 17:44:32 [id number] Kailash Lara MD S[facility] [address] [address] 06/29/2022 00:00:00 06/29/2022 12:40:04 [id number] Alondra Valles MD [facility] [address] [place] [address] 08/02/2022 00:00:00 08/02/2022 16:13:31 [id number] Deshaun Pak MD [facility] [address] [address] 11/25/2020 00:00:00 11/29/2020 16:02:56 [id number] Deshaun Pak MD [facility] [address] [address] 1 02/17/2021 00:00:00 02/17/2021 15:15:16 [id number] Batsheva Mcdonald NP [facility] [address] [address] 10/03/2021 00:00:00 10/03/2021 10:47:55 [id number] [facility] [address] [facility] [facility] [address] 10/31/2021 00:00:00 10/31/2021 14:55:06 [id number] Batsheva Mcdonald NP [facility] [address], [address] [address] 11/28/2021 00:00:00 11/28/2021 16:53:20 [id number] Batsheva Mcdonald NP [facility] [address], [address] [address] 1 12/26/2021 00:00:00 12/26/2021 15:19:46 [id number] Batsheva Mcdonald NP [facility] [address], [address] [address] 1 02/08/2022 00:00:00 02/08/2022 15:12:50 [id number] Batsheva Mcdonald NP [facility] [address]ann, [address] [address] 1 03/08/2022 00:00:00 03/08/2022 15:27:32 [id number] Batsheva Mcdonald NP [facility] [address]ann, [address] [address] 1 03/28/2022 00:00:00 03/28/2022 16:33:13 [id number] Batsheva Mcdonald NP [facility] [address], [address] [address] 1 04/27/2022 00:00:00 05/01/2022 15:33:08 [id number] Batsheva Mcdonald NP [facility] [address] [address] 1 05/25/2022 00:00:00 05/25/2022 17:13:22 [id number] Batsheva Mcdonald NP [facility] [address] [address] 1 06/22/2022 00:00:00 06/22/2022 15:43:38 [id number] Batsheva Mcdonald NP [facility] [address] [place] [address] [address] 1 07/18/2022 00:00:00 07/18/2022 15:17:26 [id number] [facility] [address] [place] [address] [address] 1 08/16/2022 00:00:00 08/16/2022 15:02:15 [id number] [facility] [address] [place] [address] [address] 1 09/20/2022 00:00:00 09/20/2022 14:35:22 [id number] [facility] [address] [place] [address] [address] 1 11/16/2022 11:59:53 11/16/2022 12:11:36 [id number] MD VANESSA Abdi_[address] [address] 12/28/2022 09:08:53 12/28/2022 10:04:45 Pain of bilateral knee joints [id number] 11089 M25.561 M25.562 [id number] [facility] [address] [place] [address] [address] 1 01/16/2023 13:46:14 01/16/2023 15:26:56 [id number] Batsheva Mcdonald NP [facility] [address] [place] [address] [address] 1 03/15/2023 13:45:32 03/15/2023 14:30:50 [id number] MD VANESSA Inter[facility] Internal Med [place] [facility] [place] [address] 04/16/2023 14:00:12 04/16/2023 14:25:08 Impacted cerumen in right ear [id number] 773037 H61.21 cleaned and irrigated, TM and ear canals are clear [id number] Batsheva Mcdonald NP [facility] [address] [address] 1 06/05/2023 14:31:57 06/05/2023 15:32:41 [id number] Alondra Valles MD Vonnie_[facility] Internal Med [address] [place] [address] 08/02/2023 14:55:15 08/02/2023 15:47:54 Adult health examination 471036557 Z00.00 dexa next month Administra tion of influenza vaccine 00810594 Z23 Depressive disorder 3548 9007 F32.A under control Hyperlipidemia 57647786 E78.5 labs Kidney disease 27764042 N08 stable GFR Malignant tumor of breast 001614419 C50.011 SEEING oncologist Osteoarthritis 984980098 M19.90 otc Osteopenia 641155349 M85 .80 on otc Schizophrenia 62594625 F 20.9 under control Pain of bi lateral knee joints 4619905903 97630 M25.561 M25.562 otc [id number] Batsheva Mcdonald NP [facility] [address] [address] 08/30/2023 13:39:35 08/30/2023 15:19:42 [id number] Batsheva Mcdonald NP [facility] [address] [address] 10/02/2023 14:04:41 10/02/2023 15:28:11 [id number] Batsheva Mcdonald NP [facility] [address] [address] 12/31/2023 13:58:59 12/31/2023 14:43:56 [id number] MD ROMELIA [facility] Internal Med [address] [place] [address] 02/26/2024 14:31:07 02/26/2024 15:06:27 Adult health examination 274707428 Z00.00 colonoscop y- 2013, dueMammogr am- 02/12/24[place]- 2023 [place] Osteoporos is is getting worsePneum ovax- CVSFLU- 08/02/23CO VID- Up to date Depressive disorder 3548 9007 F32.A under control Hyperlipidemia 12859119 E78.5 labs good Kidney disease 63597230 N08 GFR getting gradually worse Malignant tumor of breast 732549397 C50.011 SEEING oncologist Osteoarthritis 781631169 M19.90 otc Osteopenia 945815273 M85 .80 on meds Schizophrenia 32256242 F 20.9 under control Pain of bi lateral knee joints 5570107920 63443 M25.561 M25.562 otc Onychomyco sis of toenails 714764494 B35.1 Screening for malignant neoplasm of colon 823862107 Z12.11 [id number] Fidel John DPM [facility] Podiatry [place] [address] [place] [address] 03/04/2024 14:44:28 04/23/2024 18:12:04 Paronychia of toe of left foot 6768553728 8000461 L03.158 [id number] Fidel John DPM [facility] Podiatry [place] [address] [place] [address] 1 03/11/2024 16:16:52 04/23/2024 18:24:24 [id number] Batsheva Mcdonald NP [facility] [address] [place] [address] 04/01/2024 14:04:27 04/01/2024 14:42:16 [id number] Batsheva Mcdonald NP [facility] [address] [address] 06/24/2024 13:54:32 06/24/2024 14:46:26 [id number] Alondra Valles MD [facility]nie[facility] Internal Med [address] [place] [address] 08/27/2024 14:00:36 08/27/2024 15:52:05 Depressive disorder 32332748 F32.A under control Hyperlipidemia 79547841 E78.5 labs Kidney disease 95824234 N08 GFR better Malignant tumor of breast 703296281 C50.011 SEEING oncologist Osteoarthritis 436517799 M19.90 otc tylenol Schizophrenia 97833076 F 20.9 under control Pain of bi lateral knee joints 7242327529 90329 M25.561 M25.562 otc Adult heal th examination 487046025 Z00.00 colonoscop y- 2013,Mammo gram- 02/12/24[place]- 2023 [place] Osteoporos is is getting worsePneum ovax- CVS in 10/11Prevna r 10/10FLU- 08/02/23CO VID- Up to date Long-term drug therapy 881331161 Z79.891 Screening for malignant neoplasm of colon 763350012 Z12.11 Osteoporosis 46269989 M8 1.0 ON PROLIA Screening for disorder 403878249 Z13.9 [id number] Batsheva Mcdonald NP [facility] [address] [address] 09/25/2024 12:38:12 09/25/2024 14:51:28 [id number] Fidel John DPM S[facility] Podiat[facility] [place] [address] [address] 12/10/2024 14:54:25 12/15/2024 15:55:40 Paronychia of toe 937728817 L03.274 [id number] Fidel John DPM S_[facility] Podiatry [facility] [address] [address] 12/23/2024 14:55:03 12/24/2024 09:45:45 [id number] Batsheva Mcdonald NP [facility] [address] [address] 12/24/2024 13:52:52 12/24/2024 14:48:58 Health Concerns Section Related Observation LastModified by Organization Detai ls LastModified Time None Recorded Concern Status LastModified by Organization Details LastModified Time None Recorded Advance Directives Directive N: Payers Encounter Date Sequence Insurance Name Policy Number Policy Arauz Covered Member ID Arauz Member ID Guarantor Name 03/04/2024 1 [facility] (MEDICARE REPLACEMENT/A DVANTAGE - PPO) [id number] Remedios L Mcleod [id number] Remedios L [place] 03/11/2024 1 [facility] (MEDICARE REPLACEMENT/A DVANTAGE - PPO) [id number] Remedios L Mcleod [id number] Remedios L Mcleod 08/27/2024 1 [facility] (MEDICARE REPLACEMENT/A DVANTAGE - PPO) [id number] Remedios L Mcleod [id number] Remedios L Mcleod 12/10/2024 1 [facility] (MEDICARE REPLACEMENT/A DVANTAGE - PPO) [id number] Remedios L Mcleod [id number] Remedios L Mcleod 12/23/2024 1 [facility] (MEDICARE REPLACEMENT/A DVANTAGE - PPO) [id number] Remedios L Mcleod [id number] Remedios L Mcleod Notes Date Note Type Note Provider Name and Address Organization Details Recorded Time 03/04/2024 text/html Thick, discolore d painful nail. from the Lt great toe. Nail has been avulsed several times, bleeding and painful. Dystrophic x many mos - yrs. Fidel John DPM [address] [employer], [place], [address], [employer] 03/04/2024 19:12:13 03/11/2024 text/html Pt s/p P and hallux, healing as expected. Minimal pain for pt who RTC w/ dressing attached, Lt hallux. Fidel John DPM [address], [place], [address], [employer] 03/12/2024 10:14:16 08/27/2024 text/html pt is here for routine 6month f/u, compliant to meds pt is not fasting ([facility]) Schizophrenia and bipolar disorder- seeing psych, under controlmeds helping, she is on multiple medsMeds- Risperidone 1mg 1-AM and 3 HS, Benztropine 0.5mg 1tab AM, 1/2 PM Insomnia- meds helpMeds- Trazodone 50mg HS Overactive bladder -on tamsulosin and it helpsMeds- Tamsulosin 0.4 qd Sz disorder- under control,Meds-Lamot rigine 200 mg qd, Arthritis- otc TYLENOL , both TKA 2019 Kidney disease- GFR was 35, now 42, Dr Ocampo- Vit D 50, 000 U weekly Anemia- Hb was 10 Breast cancer RIGHT side- s/p lumpectomy and RT in 11/08 at [facility], seeing oncologist, mammogram 02/07 nlMeds- Anastrozole s/p Both knee replacement, doing well Osteopenia- dexa getting at oncologist, on prolia Alondra Valles MD [address], [place], [address], [employer] 11/27/2024 13:20:26 12/10/2024 text/html pt RTC for c/o painful red and ingrown, infected toenail Lt great toe Fidel John DPM [address], [place], [address], [employer] 12/11/2024 09:02:12 12/23/2024 text/html Pt RTC for c/o Paronychia s/p P and A. Well healed, no complaints at this time. Fidel John DPM [address], [place], [address], [employer] 12/24/2024 08:25:09 OBGyn Episode No OBEpisode recorded.
--- OUTSIDE RECORDS SUMMARY | 2025-01-21 12:38 | XMS_ITS | Encounter Summary ---
Author Organization [facility] Address [address] [place] [address] Phone Care Team Providers Care Patient Coordinator Front Desk Name Role Phone Clarence Valles MD Primary Care Provider Alexandre, Shaye Abbott MD PhD Unavailable [phone] Esteban Olivera MD Unavailable Cortney Godinez MD Unavailable [phone] Anita Sawyer PhD Unavailable [phone] Encounter Details Date Type Department Care Team (Latest Contact Info) Description 09/12/2021 Orders Only [facility] Scanning, Provider Social History Tobacco Use Types Packs/Day Years Used Date Smoking Tobacco: Never Assessed Comments Unknown Sex and Gender Information Value Date Recorded Sex Assigned at Not on file Legal Sex Female 8:23 PM BASKET OPERATOR Gender Identity Female 11/09/2021 6:44 PM BASKET OPERATOR Sexual Orientation Choose not to disclose 2021 6:44 PM BASKET OPERATOR documented as of this encounter Plan of Treatment Not on file documented as of this encounter Procedures Procedure Name Priority Date/Time Associated Diagnosis Comments SCAN - RADIOLOGY/IMAGING 09/12/2021 documented in this encounter Results * SCAN - RADIOLOGY/IMAGING (09/12/2021) Anatomical Region Laterality Modality Other us Provider Scanning Final Result documented in this encounter Visit Diagnoses Not on filedocumented in this encounter Care Teams Patient Coordinator Front Desk Relationship Specialty Start Date End Date Mahay, Clarence K., MD PCP - General Internal Medicine 10/12/21 AftShaye MD PhD [address] [place] [address] Surgeon Surgical Oncology 01/19/22 Esteban Olivera MD [address] [place] [address] Radiation Oncologist Radiation Oncology 03/30/22 Cortney Godinez MD [address] [place] [address] Medical Oncologist/Digital Marketing Specialist Medical Oncology 03/30/22 Anita Sawyer, PhD [address] [facility] [address] [place] [address] Nurse Practitioner Radiation Oncology 05/23/22 documented as of this encounter
--- OUTSIDE RECORDS SUMMARY | 2025-01-21 12:38 | XMS_ITS | Clinical Summary ---
Author Organization [facility] Address [address] [place] [address] Care Team Providers Care Quality Worker Name Role Phone Unavailable Primary Care Provider Unavailabl e Social History Tobacco Use Types Packs/Day Years Used Date Smoking Tobacco: Never Assessed Comments Unknown Sex and Gender Information Value Date Recorded Sex Assigned at Not on file Legal Sex Female 6:04 PM CDT Gender Identity Not on file Sexual Orientation Not on file Plan of Treatment Health Maintenance Due Date Last Done Comments Colorectal Cancer Screening Colonoscopy (10 Years) 1957 Hepatitis C 1975 DTaP, Tdap and Td Vaccines ( 1 - Tdap) 01/24/1976 Mammogram Screening 1997 Pneumococcal Vaccine: 50+ Ye ars (1 of 1 - PCV) 2007 Zoster Vaccines (1 of 2) 2007 Dexa Scan (General) 2022 COVID-19 Vaccine ( - 2023-2 5 season) 2024 RSV Immunization or 60+ Years (1 - 1-dose 75+ series) 01/24/2032 Meningococcal B Vaccine Aged Out No l onger eligible based on patient's age to complete this topic Meningococcal Vaccine Aged Out No mel hank eligible based on patient's age to complete this topic RSV Immunizations Under 20 Months Aged Out No longer eligible based on patient's age to complete this topic
[2025-01-21 15:00] LABS: Basophils Percent Auto 0.6 % (0.2-1.2); Eosinophils Absolute Auto 0.2 K/mm3 (0-0.3); Eosinophils Percent Auto 2.6 % (0-4.4); Hematocrit 37.6 % (37.0-47.0); Hemoglobin 12.2 g/dL (12.0-15.0); Immature Granulocyte Absolute 0.02 K/mm3 (0.00-0.031); Immature Granulocyte Percent A 0.3 % (0-0.5); Lymphocytes Absolute Auto 1.38 K/mm3 (0.9-3.2); Lymphocytes Percent Auto 20.2 % (18.3-44.2); Mean Corpuscular HGB Conc 32.4 g/dl (32-36); Mean Corpuscular Hemoglobin 30.8 pg (26-34); Mean Corpuscular Volume 94.9 fl (80-100); Mean Platelet Volume 10.4 fl (7.4-10.4); Monocytes Absolute Auto 0.4 K/mm3 (0.1-0.6); Monocytes Percent Auto 6.5 % (2.6-8.5); Neutrophils Absolute Auto 4.8 K/mm3 (1.3-6.7); Neutrophils Percent Auto 69.8 % (45.5-73.1); Platelet Count Result 202 k/mm3 (150-375); Red Blood Count 3.96 M/mm3 (4.2-5.4); Red Cell Distribution Width 12.3 % (11.5-14.5); White Blood Count 6.8 K/mm3 (4.5-10.0)
[2025-01-21 15:15] LABS: Add Urine Microscopic? YES; Appearance Urine Clear (Clear); Bacteria Urine None Seen /hpf; Bilirubin Urine Negative (Negative); Blood Urine Negative (Negative); Color Urine Yellow (Yellow); Glucose Urine UA Negative (Negative); Ketones Urine Negative (Negative); Leukocyte Esterase Ur Trace LEU/UL (Negative); Nitrate Urine Negative (Negative); Non Pathogenic Casts 0-2; Protein Urine Negative (Negative); RBC Urine 0-2 /hpf (0-2); Specific Grav Ur 1.008 (1.001-1.035); Squamous Epithelial Cell Urine None Seen /hpf (Few); Urobilinogen Urine 0.2 mg/dL (<2.0); WBC Urine 0-5 /hpf (0-3)
[2025-01-21 15:19] LABS: Albumin Level 4.4 g/dL (3.5-5.1); Anion Gap 9 mmol/L (4-12); Blood Urea Nitrogen 21 mg/dL (7-17); Calcium 9.5 mg/dL (8.4-10.2); Carbon Dioxide 26 mmol/L (22-30); Chloride 103 mmol/L (98-107); Estimated Glomerular Filt Rate 39; Glucose 95 mg/dL (65-110); Phosphorus 4.2 mg/dL (2.5-4.5); Potassium 4.1 mmol/L (3.4-5.0); Sodium 138 mmol/L (137-145); Uric Acid 4.8 mg/dL (2.5-7.5)
[2025-01-21 15:22] LABS: Parathyroid Intact 26.1 pg/mL (14.5-75.2)
[2025-01-21 17:19] LABS: Total Protein Urine Random 11 mg/dL
[2025-01-21 17:23] LABS: Creatinine Urine 53.4 mg/dL
[2025-01-21 17:26] LABS: MALB Creatinine Ratio 16.9 mg/g (0-30)
== END 2025-01-21 12:27 | disposition home or self-care (01) ==
PROVIDERS: PCP Internal Medicine
DX: N18.31 Chronic kidney disease, stage 3a (principal)
CPT/HCPCS: 36415; 80069; 81001; 81050; 82043; 82306; 83970; 84156; 84550; 85025